=== PATIENT | female | born 1995 | race Caucasian/White ===

== ENCOUNTER 2023-03-31 15:41 | Emergency (ER) | payer SELFPAY ==
[2023-03-31] MEDS ORDERED: TETRACAINE HCL 0.5% 4ML OPTH ONE (16:06)
[2023-03-31] MEDS ORDERED: TOBRAMYCIN SULF 0.3% OPTH OINT ONE (16:21)
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
[2023-03-31 16:50] VITALS: BP 123/89; TEMP 98.3; O2SAT 100
== END 2023-03-31 16:38 | disposition home or self-care (01) ==
LOC: ER 15:41
DX: H57.11 Ocular pain, right eye (principal); V49.60XA Unspecified car occupant injured in collision with unspecified motor vehicles in traffic accident, initial encounter
CPT/HCPCS: 99283